=== PATIENT | male | born 1970 | race Caucasian/White ===

== ENCOUNTER 2024-11-02 21:32 | Emergency (ER) | payer SELFPAY ==
[2024-11-02 21:47] VITALS: BP 137/91; PULSE 66; TEMP 36.9; O2SAT 97; BMI 26.9
--- NOTE | 2024-11-02 22:19 | CT_ITS ---
The [address] [address] Patient Name: JOSESITO PHELPS MRN: [id number] date: 1970 Sex: M Assigned Patient Location: ER Current Patient Location: ER Accession/Order Number: [id number] Exam Date: 11/02/2024 22:47 Report Date: 11/02/2024 23:27 At the request of: SASHA MURPHY MD Procedure: CT cervical spine wo con CT CERVICAL SPINE WITHOUT CONTRAST WITH 3D RECONSTRUCTIONS: CLINICAL HISTORY: neck pain COMPARISON: None TECHNIQUE: Spiral axial unenhanced images were obtained through the cervical spine. Sagittal, coronal and 3D volume-rendered reconstructions were also reviewed. This CT exam was performed using one or more following dose reduction techniques: Automated exposure control, adjustment of the mA and/or kV according to patient size, or use of iterative reconstruction technique. FINDINGS: [id number] multilevel degenerative changes greatest at C4-C6. No fracture malalignment identified. No prevertebral soft tissue swelling. Lung apices are clear. CT/CT cervical spine wo con IMPRESSION: NO CERVICAL SPINE FRACTURE MULTILEVEL DEGENERATIVE CHANGE Impression dictated by: Hi Hammond M.D. 11/02/2024 11:27 PM Dictation Location: [place] [address] Electronically authenticated by: [id number] Y Date: 11/02/2024 23:27
--- OUTSIDE RECORDS SUMMARY | 2024-11-02 22:25 | XMS_ITS | Clinical Summary ---
Author Organization [facility] Address [id number] [address] [place] [address] Care Team Providers Care Escalator Operator Name Role Phone Ale Navarrete TICKET SELLER-PIPELINE DISPATCH OPERATOR Primary Care Provi kit Allergies No known active allergies Medications topiramate (TOPAMAX) 50 mg tabletIndication s:Migraine without aura and without status migrainosus, not intractable Take 1 tablet (50 mg total) by mouth nightly. 30 tablet 3 05/18/2020 Active omeprazole (PriLOSEC) 20 mg capsuleIndicatio ns:Gastroesophag eal reflux disease with esophagitis without hemorrhage Take 1 capsule (20 mg total) by mouth every morning before breakfast. 90 capsule 1 05/18/2020 Active ubrogepant (UBRELVY) 50 mg tabletIndication s:Migraine without aura and without status migrainosus, not intractable Take 50 mg by mouth daily as needed (migraine). 4 tablet 05/18/2020 Active Active Problems Problem Noted Date Diagnosed Date Chest pain 04/05/2020 Hx of bronchitis 04/05/2020 Gastroesophageal reflux dise ase with esophagitis without hemorrhage 04/05/2020 Arthralgia of both knees 04/05/2020 Screening for lipid disorders 04/05/2020 Migraine without aura and wi thout status migrainosus, not intractable 04/05/2020 Family History Medical History Relation Name Comments Diabetes Maternal Grandmother Diabetes Maternal Uncle Ovarian cancer Mother Epilepsy Sister Relation Name Status Comments Father Alive Maternal Grandfather Maternal Grandmother Maternal Uncle Mother Alive Sister Alive Social History Tobacco Use Types Packs/Day Years Used Date Smoking Tobacco: Passive Smo ke Exposure - Never Smoker Smokeless Tobacco: Current Chew Tobacco Cessation:Ready to Q uit: Yes; Counseling Given: Yes Alcohol Use Standard Drinks/Week Comments Yes 1 (1 standard drink = 0.6 oz pur e alcohol) OCCASIONAL PHQ-2 Answer Date Recorded Total Score 0 04/05/2020 Childcare Answer Date Recorded Childcare Unknown 03/31/2020 Employment Answer Date Recorded Employment Unknown 03/31/2020 Purpose - Life Answer Date Recorded Purpose and direction in life Unknown Sex and Gender Information Value Date Recorded Sex Assigned at Not on file Legal Sex Male 1:07 PM EST Gender Identity Not on file Sexual Orientation Not on file Last Filed Vital Signs Vital Sign Reading Time Taken Comments Blood Pressure 118/80 05/18/2020 8:48 AM EDT Pulse 74 05/18/2020 8:48 AM EDT Temperature 36.3 C (97.3 F) 05/18/2020 8:48 AM EDT Respiratory Rate 16 04/05/2020 2:08 PM EST Oxygen Saturation 96% 05/18/2020 8:48 AM EDT Inhaled Oxygen Concentration - - Weight 94.4 kg (208 lb 3.2 oz) 05/18/2020 8:48 A M EDT Height 182.9 cm (6' 0.01 ) 05/18/2020 8:48 AM ED T Body Mass Index 28.23 05/18/2020 8:48 AM EDT Plan of Treatment Health Maintenance Due Date Last Done Comments Depression Screening 1984 Tobacco Screening 1984 Adult BMI Screening 1990 DTaP,Tdap and Td Vaccines (1 - Tdap) 09/10/1991 Zoster (Shingles) Vaccine (1 of 2) 2022 Influenza Vaccine 10/12/2024 Medical Devices Not on file Insurance * Guarantor: [facility] [employer] Account Type Relation to Patient Date of Phone Billing Address Personal/Family Self 1970 [address] [place] [address] ANTH Care Teams Escalator Operator Relationship Specialty Start Date End Date Ale Navarrete APRN-PIPELINE DISPATCH OPERATOR [address], [place] [address] PCP - General Family Medicine 04/14/20
--- OUTSIDE RECORDS SUMMARY | 2024-11-02 22:25 | XMS_ITS | Encounter Summary ---
Author Organization [employer] [facility] Address [id number] [address] [place] [address] Care Team Providers Care Steel Checker Name Role Phone LandonAle rasmussen Nohemy STEMHOLE BORER AND TOPPER-JOY OPERATOR HELPER Primary Care Provi kit Encounter Details Date Type Department Care Team (Late st Contact Info) Description 04/26/2020 Telephone [facility] [address] [place] [address] Yobani So CMA Social History Tobacco Use Types Packs/Day Years Used Date Smoking Tobacco: Passive Smo ke Exposure - Never Smoker Smokeless Tobacco: Current Chew Alcohol Use Standard Drinks/Week Comments Yes 1 [...] on file Sexual Orientation Not on file COVID-19 Exposure Response Date Recorded In the last month, have you been in contact with someone who was confirmed or suspected to have Coronavirus / COVID-19? No / Unsure 04/14/2020 11:27 AM EST documented as of this encounter Miscellaneous Notes * Telephone Encounter - Yobani Bhatia CMA - 04/26/2020 1:03 PM EDT Sonia says that [facility] hasn't received any of his blood work results. Could you result them for himor would you rather Justine? Yobani Bhatia CMA 04/26/20 1306 * Telephone Encounter - ZACK Hernández - 04/26/2020 1:03 PM EDT Patient cancelled his appointment on 04/18/2020- Justine would have discussed his results at that appointment. However, all labs were WNL except the glucose which was slightly high at 103. If this was a fasting sample, patient should limit his carbohydrates and complex sugars. Recheck laboratory tests annually. documented in this encounter Plan of Treatment Not on file documented as of this encounter Visit Diagnoses Not on filedocumented in this encounter Additional Health Concerns Assessment Noted Time PHQ-9 Depression Total Score: 0 04/05/19 21 2:00 PM EST documented as of this encounter Care Teams Steel Checker Relationship Specialty Start Date End Date Ale Nvaarrete APRN-CNP [address], [place] [address] PCP - General Family Medicine 04/14/20 documented as of this encounter
--- OUTSIDE RECORDS SUMMARY | 2024-11-02 22:26 | XMS_ITS | Encounter Summary ---
Author Organization [facility] Address [address] [place] [address], [address] [place] [address] Care Team Providers Care Quill Stripper Name Role Phone Unavailable Primary Care Provider Unavailabl e Reason for Referral * Imaging (Routine) - Closed Specialty Diagnoses / Procedures Referred By Contac t Referred To Contact Radiology Diagnoses Sprain of ligaments of cervical spine, subsequent encounter Degeneration of cervical intervertebral disc Procedures MRI CERVICAL SPINE WO CONTRAST Shankar Morrow APRN - PASTER SUPERVISOR [address] [place] [address] Phone: tel: fax: Referral ID Status Reason Start Date Expiration Date Visits Re quested Visits Authorized [id number] Closed 01/02/2022 01/02/2023 1 1 Encounter Details Date Type Department Care Team (Latest Contact Info) Description 01/02/2022 Transcribe Orders [facility] [address] [place] [address] Shankar Morrow MAID SUPERVISOR - PASTER SUPERVISOR [address] [place] [address] Sprain of ligaments of cervical spine, subsequent encounter (Primary Dx); Degeneration of cervical intervertebral disc Social History Tobacco Use Types Packs/Day Years Used Date Smoking Tobacco: Never Assessed Sex and Gender Information Value Date Recorded Sex Assigned at Not on file Legal Sex Male 5:07 PM EST Gender Identity Not on file Sexual Orientation Not on file documented as of this encounter Plan of Treatment Scheduled Orders Name Type Priority Associated Diagnoses Orde r Schedule MRI CERVICAL SPINE WO CONTRAST Imaging Routine Sprain of ligaments of cervical spine, subsequent encounter Degeneration of cervical intervertebral disc Expected: 01/02/2022, Expires: 01/02/2023 documented as of this encounter Visit Diagnoses Diagnosis Sprain of ligaments of cervical spine, subsequent encounter- Primary Degeneration of cervical intervertebral disc documented in this encounter
--- OUTSIDE RECORDS SUMMARY | 2024-11-02 22:26 | XMS_ITS | Encounter Summary ---
Author Organization [facility] [facility] Address [id number] [address] [place] [address] Care Team Providers Care Infantry Assaultman Name Role Phone Ale Navarrete Nohemy MANPOWER DEVELOPMENT SPECIALIST-FORENSIC EXAMINER Primary Care Provi kit Encounter Details Date Type Department Care Team (Late st Contact Info) Description 04/27/2020 Telephone [facility] [address] [place] [address] Yobani So CMA Social History [...] Telephone Encounter - Yobani Bhatia CMA - 04/27/2020 8:27 AM EDT Sonia also mentioned that [place] had an ECG. If you don't mind, could you possibly result that? Yobani Bhatia CMA 04/27/20 0829 * Telephone Encounter - ZACK Hernández - 04/27/2020 8:27 AM EDT Normal EKG- Patient should reschedule an appointment to review testing results with his PCP documented in this encounter Plan of Treatment Not on file documented as of this encounter Visit Diagnoses Not on filedocumented in this encounter Additional Health Concerns Assessment Noted Time PHQ-9 Depression Total Score: 0 04/05/19 21 2:00 PM EST documented as of this encounter Care Teams Infantry Assaultman Relationship Specialty Start Date End Date Ale Navarrete APRN-CNP [address], [place] [address] PCP - General Family Medicine 04/14/20 documented as of this encounter
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
[2024-11-03] MEDS: PREDNISONE 20 MG TABLET 40 MG PO
== END 2024-11-03 00:07 | disposition home or self-care (01) ==
PROVIDERS: Emergency Provider Internal Medicine
DX: M54.12 Radiculopathy, cervical region (principal)
CPT/HCPCS: 72125; 76376; 99284; J7512